=== PATIENT | male | born 1950 | race American Indian/Alaskan Native ===

== ENCOUNTER 2017-02-14 10:14 | Emergency (ER) | payer BC, MEDICARE ==
[2017-02-14 10:21] VITALS: TEMP 98.4
--- NOTE | 2017-02-14 10:54 | C.PDOC ---
History Of Present Illness 66 year old male presents to the ED, accompanied by his , with complaints of intermittent dizziness with associated sweating for three days. He describes dizziness as "head pressure" and feels as though his "head is heavy." He denies room spinning or feeling as though he is about to pass out. Patient states dizziness occurs when he goes from laying down to sitting up. As per , patient had brain surgery approximately 2 years ago in [facility] to evacuate blood. Patient receives dialysis Friday, , and Friday with last dialysis yesterday going normally. He denies fever, headache, or chest pain. Time Seen by Provider: 02/14/17 10:36 Chief Complaint (Nursing): Dizziness/Lightheaded History Per: Patient, Family () History/Exam Limitations: no limitations Onset/Duration Of Symptoms: Days (3 days ), Intermittent Episodes Current Symptoms Are (Timing): Still Present Activity At Onset Of Symptoms: Sitting (when goes from laying down to sitting up ) Associated Symptoms Preceding Syncopal Episode: Lightheadedness Seizure Or Post-ictal Symptoms: None Fall Associated With With Symptoms: No Recent travel outside of the [place]: No Additional History Per: Prior Records Past Medical History Reviewed: Historical Data, Nursing Documentation, Vital Signs Vital Signs: Last Vital Signs Temp 98.4 F 02/14/17 10:21 Pulse 72 02/14/17 12:41 Resp 100 H 02/14/17 12:41 BP 170/79 H 02/14/17 12:41 Pulse Ox 16 L 02/14/17 12:41 - Medical History PMH: HTN, End Stage Renal Disease (T, Th, S), Chronic Kidney Disease Other Surgeries: Brain surgery to evacuate blood - [facility] HEMODIALYSIS (10/05/13) OTHER BRAIN INCISION (10/05/13) PACKED CELL TRANSFUSION (10/05/13) VACCINATION NEC (10/05/13) VENOUS CATHETERIZATION NEC (10/05/13) Family History: States: Unknown Family Hx - Social History Hx Tobacco Use: No Hx Alcohol Use: No Hx Substance Use: No - Immunization History Hx Influenza Vaccination: Yes Review Of Systems Except As Marked, All Systems Reviewed And Found Negative. Constitutional: Positive for: Sweats (when begins to feel dizzy). Negative for : Fever, Chills Eyes: Negative for: Vision Change Cardiovascular: Negative for: Chest Pain Respiratory: Negative for: Cough, Shortness of Breath Gastrointestinal: Negative for: Nausea, Vomiting, Abdominal Pain Neurological: Positive for: Dizziness. Negative for: Weakness, Numbness, Headache Physical Exam - Physical Exam Additional Physical Exam Comments: Constitutional: No acute distress. Head: Old surgical scar. Eyes: PERRL. ENT: Moist mucous membranes. Neck: Supple. Cardiovascular: Regular rate. Radial pulse 2+ bilaterally. Chest: No tenderness. Respiratory: Clear to auscultation bilaterally. GI: Soft. Nontender. Nondistended. Back: No CVA tenderness. Musculoskeletal: No tenderness or swelling of extremities. Skin: No rash. Neurologic: Alert, no focal deficit. Negative Romberg. No nystagmus. Finger to nose normal. Heel to chavze normal. Joshua-Hallpike test normal. Gait steady. ED Course And Treatment - Laboratory Results Result Diagrams: 02/14/17 11:23 02/14/17 11:23 ECG: Interpreted By Me, Viewed By Me ECG Rhythm: Sinus Rhythm (74 BPM) Interpretation Of ECG: No ST-T wave changes. O2 Sat by Pulse Oximetry: 95 (room air ) - CT Scan/US CT HEAD WITHOUT CONTRAST Other Rad Studies (CT/US): Read By Radiologist, Radiology Report Reviewed CT/US Interpretation: FINDINGS: HEMORRHAGE: No intracranial hemorrhage. BRAIN : Diffuse atrophy with prominence of the ventricles and sulci noted. No mass effect or edema. Dense intracranial atherosclerosis. Cortical atrophic changes are noted along the right convexity. Left frontal encephalomalacia is evident involving subcortical, cortical, and deep white matter adjacent to the craniotomy site. Additional scattered white matter hypodensities, which are nonspecific, but often seen with chronic microvascular ischemic disease. Please note that MRI with diffusion imaging is more sensitive in the detection of acute ischemic event. VENTRICLES: No hydrocephalus. CALVARIUM: Left frontal craniotomy. PARANASAL SINUSES: Unremarkable as visualized. No significant inflammatory changes. MASTOID AIR CELLS: Unremarkable as visualized. No inflammatory changes. OTHER FINDINGS: None. IMPRESSION: Cortical atrophic changes are noted along the right convexity. Left frontal encephalomalacia as above. Additional scattered nonspecific white matter changes. Generalized atrophy. Medical Decision Making Medical Decision Making: EKG NSR 74 bpm, no ST/T wave changes. Patient in no distress during ER stay. Anemia baseline. Labs unremarkable. Orthostatics not hypotensive in any position. Family feels comfortable to go home and f/u with PMD. Instructed to return to ER for worsening pain, chest pain , dyspnea, near syncope. Disposition - Disposition Referrals: Loida Fernandez MD [Medical Doctor] - Disposition: HOME/ ROUTINE Disposition Time: 12:36 Condition: STABLE Instructions: Dizziness (ED) Forms: [facility] ([place]) - Clinical Impression Clinical Impression: Dizziness - Scribe Statement The provider has reviewed the documentation as recorded by the Scribe Lisette Leslie All medical record entries made by the Alejandraibjonathan were at my direction and personally dictated by me. I have reviewed the chart and agree that the record accurately reflects my personal performance of the history, physical exam, medical decision making, and the department course for this patient. I have also personally directed, reviewed, and agree with the discharge instructions and disposition.
[2017-02-14 11:29] LABS: BASO # 0.1 K/uL (0.0-0.2); BASO % 1.2 % (0.0-2.0); EOS # 0.3 K/uL (0.0-0.7); EOS % 4.2 % (0.0-4.0); HEMATOCRIT 32.3 % (35.0-51.0); LYMPH # 1.3 K/uL (1.0-4.3); LYMPH % 20.6 % (20.0-40.0); MEAN CELL VOLUME 98.6 fL (80.0-94.0); MEAN CORPUSCULAR HEMOGLOBIN 32.5 pg (27.0-31.0); MEAN PLATELET VOLUME 9.3 fL (7.2-11.7); MONO # 0.6 K/uL (0.0-0.8); NRBC % 0.1 % (0.0-2.0); RED CELL DISTRIBUTION WIDTH 13.6 % (11.5-14.5); WHITE BLOOD COUNT 6.5 K/uL (4.8-10.8)
--- NOTE | 2017-02-14 11:35 | RAD ---
HISTORY: dizziness COMPARISON: Chest x-ray performed 10/11/13 TECHNIQUE: Chest, one view. FINDINGS: Examination limited by habitus and hypoinflation. LUNGS: No focal consolidation. Please note that chest x-ray has limited sensitivity for the detection of pulmonary masses. PLEURA: No significant pleural effusion identified. No definite pneumothorax . CARDIOVASCULAR: Heart size appears top-normal. Atherosclerotic calcifications of the aorta. OSSEOUS STRUCTURES: No acute osseous abnormality identified. VISUALIZED UPPER ABDOMEN: Unremarkable. OTHER FINDINGS: None. IMPRESSION: No acute findings. See above.
[2017-02-14 11:44] LABS: BILIRUBIN,TOTAL 0.7 mg/dL (0.2-1.3); CALCIUM 9.8 mg/dl (8.6-10.4); TOTAL PROTEIN 7.8 g/dL (6.3-8.3)
--- NOTE | 2017-02-14 12:06 | CT ---
PROCEDURE: CT HEAD WITHOUT CONTRAST. HISTORY: head pressure, h/o aneurysmal bleed COMPARISON: Noncontrast head CT 03/09/14 TECHNIQUE: Axial computed tomography images were obtained through the head/brain without intravenous contrast. Radiation dose: Total exam DLP = 847.19 mGy-cm. This CT exam was performed using one or more of the following dose reduction techniques: Automated exposure control, adjustment of the mA and/or kV according to patient size, and/or use of iterative reconstruction technique. FINDINGS: HEMORRHAGE: No intracranial hemorrhage. BRAIN: Diffuse atrophy with prominence of the ventricles and sulci noted. No mass effect or edema. Dense intracranial atherosclerosis. Cortical atrophic changes are noted along the right convexity. Left frontal encephalomalacia is evident involving subcortical, cortical, and deep white matter adjacent to the craniotomy site. Additional scattered white matter hypodensities, which are nonspecific, but often seen with chronic microvascular ischemic disease. Please note that MRI with diffusion imaging is more sensitive in the detection of acute ischemic event. VENTRICLES: No hydrocephalus. CALVARIUM: Left frontal craniotomy. PARANASAL SINUSES: Unremarkable as visualized. No significant inflammatory changes. MASTOID AIR CELLS: Unremarkable as visualized. No inflammatory changes. OTHER FINDINGS: None. IMPRESSION: Cortical atrophic changes are noted along the right convexity. Left frontal encephalomalacia as above. Additional scattered nonspecific white matter changes. Generalized atrophy.
[2017-02-14 12:42] VITALS: BP 170/79; PULSE 72; RESP 100
[2017-02-14 13:34] VITALS: O2SAT 95
--- NOTE | 2017-02-14 19:50 | CARD ---
APPROVED REPORT EKG Measurement Heart [id number] <Conclusion> Normal sinus rhythm Normal ECG
== END 2017-02-14 12:45 | disposition home or self-care (01) ==
LOC: C.ER 10:14
DX: R42 Dizziness and giddiness (principal)

== ENCOUNTER 2018-09-11 09:47 | Day surgery (SDC) | payer MEDICARE, BC | END 2018-09-11 13:15 | disposition home or self-care (01) | LOC: C.ENDO 09:47 | DX: Z12.11 Encounter for screening for malignant neoplasm of colon (principal) ==

== ENCOUNTER 2018-10-07 12:35 | Outpatient (CLI) | payer MEDICARE, BC | END 2018-10-07 12:36 | disposition home or self-care (01) | LOC: C.MRIC 12:35 | DX: R42 Dizziness and giddiness (principal) ==